=== PATIENT | male | born 1970 | race American Indian/Alaskan Native ===

== ENCOUNTER 2021-12-04 19:48 | Emergency (ER) | payer OTHER ==
[2021-12-04 21:10] VITALS: BP 146/75
[2021-12-04] MEDS ORDERED: KETOROLAC 60 MG/2 ML INJ IM ONE (21:22)
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
== END 2021-12-04 23:00 | disposition home or self-care (01) ==
LOC: ED 19:48
DX: M54.9 Dorsalgia, unspecified (principal); V89.2XXA Person injured in unspecified motor-vehicle accident, traffic, initial encounter; Y93.89 Activity, other specified; Y92.89 Other specified places as the place of occurrence of the external cause; Y99.8 Other external cause status
CPT/HCPCS: 72100; 96372; 99283; J1885